=== PATIENT | female | born 2000 | race Two or more races ===

== ENCOUNTER 2021-08-03 15:14 | Emergency (ER) | payer OTHER ==
[~2021-08-03] VITALS: Ht 160 cm; Wt 54.4 kg
[2021-08-03 17:13] VITALS: BP 120/82
[2021-08-03] MEDS ORDERED: BENZ100C19 PO (17:36)
[2021-08-03] MEDS ORDERED: AMOX-277 PO (17:36)
[2021-08-03] MEDS ORDERED: ACET-1158 PO (17:36)
== END 2021-08-03 17:58 | disposition home or self-care (01) ==
LOC: ER 15:14
DX: J06.9 Acute upper respiratory infection, unspecified (principal)
CPT/HCPCS: 71046; 93005

== ENCOUNTER 2021-08-07 12:32 | Emergency (ER) | payer OTHER ==
[~2021-08-07] VITALS: Ht 160 cm; Wt 54.4 kg
[~2021-08-07 12:32] MED LIST: ACET-1158 PO; AMOX-277 PO; BENZ100C19 PO
[2021-08-07] MEDS ORDERED: SODIUM CHLORIDE 0.9% 1,000 ML IV ONE ×2 (12:45)
[2021-08-07 13:26] LABS: Basophils # (auto) 0 10 ^3/uL (0-0.2); Basophils % (auto) 0.7 % (0.0-2.0); Eosinophils # (auto) 0.1 10 ^3/uL (0-0.8); Eosinophils % (auto) 0.8 % (0.0-7.0); Hematocrit 38.4 % (36.0-46.0); Hemoglobin 12.9 g/dL (12.2-16.2); Lymphocytes # (auto) 2.3 10 ^3/uL (0.4-5.4); Lymphocytes % (auto) 34.4 % (10.0-50.0); Mean Corpuscular Hemoglobin 30.6 pg (28.0-32.0); Mean Corpuscular Hgb Conc. 33.6 g/dL (32.0-36.0); Mean Corpuscular Volume 91.3 fL (80.0-100.0); Monocytes # (auto) 0.4 10 ^3/uL (0-1.3); Monocytes % (auto) 6.3 % (0.0-12.0); Neutrophils # (auto) 3.8 10 ^3/uL (1.6-8.6); Neutrophils % (auto) 57.8 % (37.0-80.0); Nucleated Red Blood Cells % 0.1 %; Red Blood Cells 4.21 10^6/uL (4.0-5.20); White Blood Cell 6.6 10^3/uL (4.4-10.8)
[2021-08-07 13:57] LABS: Urine WBC None Seen /hpf (0 - 5)
[2021-08-07 14:08] LABS: Urine Bacteria NONE SEEN /hpf (None Seen); Urine Blood Negative /uL (Negative)
[2021-08-07 14:50] LABS: Calcium 8.9 mg/dL (8.5-10.1); Potassium 3.5 mmol/L (3.5-5.1)
[2021-08-07 14:56] LABS: Albumin 3.8 g/dL (3.4-5.0); BUN/Creatinine Ratio 7.2; Bilirubin, Total 0.4 mg/dL (0.2-1.0); Total Protein 7.8 g/dL (6.4-8.2)
[2021-08-07 16:43] VITALS: BP 112/68
== END 2021-08-07 16:46 | disposition home or self-care (01) ==
LOC: ER 12:32
DX: R55 Syncope and collapse (principal); R53.1 Weakness
CPT/HCPCS: 36415; 70450; 74176; 80053; 81001; 85025; 96360; 96361; 99284; J7030